=== PATIENT | female | born 1980 | race Caucasian/White ===

== ENCOUNTER → 2023-11-12 07:13 | Outpatient (REF) | payer OTHER, SELFPAY | LOC: DHCBS MAIN 07:13 | PROVIDERS: ATTENDING PHYSICIAN Internal Medicine Cardiovascular Disease; FAMILY PHYSICIAN Family Medicine | DX: R00.2 Palpitations (principal); I34.1 Nonrheumatic mitral (valve) prolapse; Z87.39 Personal history of other diseases of the musculoskeletal system and connective tissue | CPT/HCPCS: 93306 ==